=== PATIENT | male | born 1990 | race Caucasian/White ===

== ENCOUNTER 2019-04-23 16:07 | Emergency (ER) | payer SELFPAY ==
[~2019-04-23] VITALS: Ht 193 cm; Wt 65.8 kg
--- NOTE | 2019-04-23 16:27 | ED Dyspnea ---
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 Has become progressive worse since injuring it. Timing/Duration: 4-6 Hours Severity: Moderate Activities at Onset: Activity (see bong) Prior Episodes/Possible Cause: No Prior Episodes Modifying Factors: Worse With Activity; Improves With Rest Associated Symptoms: Denies Symptoms (x/ as noted.), Pain (left shoulder) Allergies and Home Medications Allergies Coded Allergies: No Known Drug Allergies (Unverified , 04/24/19) Home Medications Meloxicam 7.5 Mg Tablet, 7.5 MG PO Q12H PRN for SHOULDER PAIN Prescribed by: KOBY MONTENEGRO on 04/23/19 1530 Patient Home Medication List Home Medication List Reviewed: Yes Review of Systems Review of Systems Constitutional: see HPI Musculoskeletal: see HPI, other (left shoulder pain) All Other Systems Reviewed Negative Unless Noted: Yes (Negative excepted noted.) Past Eddqtvt-Hfkxba-Fdsabu Hx Patient Social History Recent Foreign Travel: No Contact w/Someone Who Travel: No Physical Exam Vital Signs Vital Signs - First Documented 04/23/19 16:13 Temp 98.3 Pulse 79 Resp 16 B/P (MAP) 104/66 (79) Pulse Ox 99 O2 Delivery Room Air Capillary Refill : Height, Weight, BMI Height: '" Weight: lbs. oz. kg; BMI Method: General Appearance: WD/WN, Mild Distress Respiratory: No Respiratory Distress Cardiovascular: Regular Rate, Rhythm Rectal: Deferred Extremity: Other (left shoulder c/ decreased active ROM secondary to apparent pain; (+) palpable tenderness anteriorly; no obvious visual, or palpable deformity. ) Neurologic/Psychiatric: Alert, Oriented x3, No Motor/Sensory Deficits, Normal Mood/Affect Skin: Warm/Dry Progress/Results/Core Measures Results/Orders My Orders Orders - KOBY MONTENEGRO DO Ekg Tracing (04/23/19 16:27) Shoulder 3 View Left (04/23/19 16:45) Ed Ortho Supplies Order (04/23/19 17:11) Ketorolac Injection (Toradol Injection) (04/23/19 17:15) Ketorolac Injection (Toradol Injection) (04/23/19 17:29) Vital Signs/I&O 04/23/19 04/23/19 16:13 18:00 Temp 98.3 98.3 Pulse 79 79 Resp 16 11 B/P (MAP) 104/66 (79) 104/66 (79) Pulse Ox 99 99 O2 Delivery Room Air Room Air Diagnostic Imaging Diagonstic Imaging: Xray Plain Films/CT/US/NM/MRI: other (shoulder-NAD) Departure Impression Primary Impression: Left shoulder injury and pain Disposition: HOME, SELF-CARE Condition: Stable Departure-Patient Inst. Decision time for Depature: 17:14 Referrals: CORI NIEVES MD Patient Instructions: Bursitis (DC) Add. Discharge Instructions: All discharge instructions reviewed with patient and/or family. Voiced understanding. USE SLING FOR NEXT 3-5 DAYS. WILL NEED ORTHOPEDIC FOLLOW UP IF NOT DOING BETTER IN NEXT 4-5 DAYS. MAY TAKE A 1000 mg OF TYLENOL WITH THE PRESCRIPTION MEDICINE PRESCRIBED. DO NOT EXCEED 4000 mg OF TYLENOL IN A 24 HOURS. Scripts Meloxicam (Mobic) 7.5 Mg Tablet 7.5 MG PO Q12H PRN for SHOULDER PAIN, #30 TAB 0 Refills Prov: KOBY MONTENEGRO DO 04/23/19 Work/School Note: Work Release Form Date Seen in the Emergency Department: April 23, 2019 Return to Work: April 24, 2019 Other Restrictions Listed Below: WILL NOT BE ABLE TO USE LEFT ARM FOR THE NEXT 5 DAYS. KOBY MONTENEGRO DO April 23, 2019 16:26
--- NOTE | 2019-04-23 16:58 | Diagnostic Imaging Report ---
INDICATION: Left shoulder pain and paresthesia after injury. EXAMINATION: AP, oblique and transscapular views of the left shoulder are obtained. FINDINGS: There is soft tissue prominence overlying the distal clavicle head; however, alignment appears to be unremarkable. No acute fracture or dislocation is identified. No abnormal lytic or sclerotic focus is seen, and there is no radiopaque foreign body. IMPRESSION: No acute abnormality. Dictated by: Dictated on workstation # [id number]
[2019-04-23] MEDS ORDERED: KETOROLAC 30 MG/ML VIAL IM ONE (17:15)
[2019-04-23] MEDS ORDERED: MELO-170 PO (17:16)
[2019-04-23] MEDS ORDERED: KETOROLAC 30 MG/ML VIAL ONE (17:29)
[2019-04-23 18:00] VITALS: BP 104/66
--- OUTSIDE RECORDS SUMMARY | 2019-04-23 23:28 | XMS REPORT ---
Author Author Migration, Doctor Organization [facility] Address Unknown Phone Unavailable Care Team Providers Care Energy Conservation Representative Name Role Phone Migration, Doctor Unavailable Unavailable PROBLEMS Type Condition ICD9-CM Code ULB38-SH Code Onset Dates Condition Status SNOMED Code Problem Lumbago 724.2 Active 692068541 Problem Physical exam Z00.00 Active 945152176 ALLERGIES No Information ENCOUNTERS Encounter Location Date Diagnosis [facility] [id number] [place] [id number] 15 Mar, 2016 Dental examination Z01.20 [facility] [id number] [place] [phone] 10 Jan, 2016 [facility] [id number] [place] [phone] 10 Jan, 2016 Physical exam Z00.00 [facility] [id number] [place] [phone] 14 Mar, 2015 [facility] [id number] [place] [phone] Mar, [facility] [id number] [phone] Jan, [facility] [id number] [place] [phone] Jan, [facility] [id number] [place] [phone] Jan, IMMUNIZATIONS No Known Immunizations SOCIAL HISTORY Never Assessed REASON FOR VISIT [facility] [place] CARE VITAL SIGNS MEDICATIONS No Known Medications RESULTS No Results PROCEDURES No Known procedures INSTRUCTIONS MEDICATIONS ADMINISTERED No Known Medications MEDICAL (GENERAL) HISTORY Type Description Date Medical History scoliosis Medical History chron's disease Hospitalization History chron's disease
--- OUTSIDE RECORDS SUMMARY | 2019-04-23 23:28 | XMS REPORT ---
Author Author OLE ORANTES Organization [employer] Address Unknown Phone Unavailable Care Team Providers Care Construction Contractor Name Role Phone OLE ORANTES CP Unavailable Allergies, Adverse Reactions, Alerts Substance Reaction Event Type N.K.D.A. Info Not Available Non Drug Allergy Problems Problem Type Condition Code Onset Dates Condition Status Problem Lumbago 724.2 Active Assessment Physical exam Z00.00 Active Problem Physical exam Z00.00 Active Medications No Known Medications Procedures Procedure Coding System Code Date Office Visit, Est Pt., Level 3 CPT-4 36312 Jan 11, 2016 Vital Signs Date/Time: Jan 11, 2016 Temperature 98.4 F Weight 156.4 lbs Height 76 in BMI 19.04 Index Blood Pressure Diastolic 76 mmHg Blood Pressure Systolic 112 mmHg Cardiac Monitoring Heart Rate 72 bpm Results No Known Results Summary Purpose [employer] Submission
--- OUTSIDE RECORDS SUMMARY | 2019-04-23 23:28 | XMS REPORT ---
Author SAMIR Hameed [facility] [employer] Address Unknown Phone Unavailable Care Team Providers Care Green Meat Grader Name Role Phone SAMIR MEZA CP Unavailable Allergies No Known Allergies Problems Problem Type Condition Code Onset Dates Condition Status Problem Lumbago 724.2 Active Problem Physical exam Z00.00 Active Medications No Known Medications Results No Known Results Summary Purpose [employer] Submission
--- OUTSIDE RECORDS SUMMARY | 2019-04-23 23:28 | XMS REPORT | Continuity of Care Document ---
Author Organization Unknown Address Unknown Allergies There is no data. Medications There is no data. Problems There is no data. Procedures There is no data. Results There is no data. Encounters ACCT No. Visit Date/Time Discharge Status Pt. Type Provider Facility Loc./Unit Complaint [id number] 04/20/2019 12:40:00 04/20/2019 23:59:59 CLS Outpatient HU CORTEZ LAC [facility] IN [facility]
--- OUTSIDE RECORDS SUMMARY | 2019-04-23 23:28 | XMS REPORT ---
Author Author Migration, Doctor Organization [facility] Address Unknown Phone Unavailable Care Team Providers Care Financial Advocate Name Role Phone Migration, Doctor Unavailable Unavailable PROBLEMS Type Condition ICD9-CM Code [id number] Code Onset Dates Condition Status SNOMED Code Problem Lumbago 724.2 Active 131769220 Problem Physical exam Z00.00 Active 556079142 ALLERGIES No Information ENCOUNTERS Encounter Location Date Diagnosis [facility] [id number] [place] [phone] 15 Mar, 2016 Dental examination Z01.20 [facility] [id number] [place] [phone] 10 Jan, 2016 [facility] [id number] [place] [phone] 10 Jan, 2016 Physical exam Z00.00 [facility] [id number] [place] [phone] 14 Mar, 2015 [facility] [id number] [place] [phone] 13 Mar, 2015 [facility] [id number] [place] [phone] Jan, [facility] [id number] [place] [phone] Jan, [facility] [id number] [place] [phone] Jan, IMMUNIZATIONS No Known Immunizations SOCIAL HISTORY Never Assessed REASON FOR VISIT [place] PLAN OF CARE VITAL SIGNS MEDICATIONS Medication Instructions Dosage Frequency Start Date End Date Duration Status Vicodin 5-500 mg take 2 tablets by oral route every 6 hours as needed for pain Jan, Active Flexeril 10 mg take 1 tablet (10 mg) by oral route 3 times per day Jan, Active RESULTS No Results PROCEDURES No Known procedures INSTRUCTIONS MEDICATIONS ADMINISTERED No Known Medications MEDICAL (GENERAL) HISTORY Type Description Date Medical History scoliosis Medical History chron's disease Hospitalization History chron's disease
== END 2019-04-23 17:36 | disposition home or self-care (01) ==
LOC: ER FS 16:09 → MERGE 16:09 → ER FS 17:36
DX: S49.92XA Unspecified injury of left shoulder and upper arm, initial encounter (principal); W28.XXXA Contact with powered lawn mower, initial encounter
CPT/HCPCS: 73030

== ENCOUNTER 2019-07-14 07:50 | Emergency (ER) | payer SELFPAY ==
[~2019-07-14] VITALS: Ht 193 cm; Wt 65.8 kg
[~2019-07-14 07:50] MED LIST: MELO-170 PO
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
[2019-07-14 08:49] VITALS: BP 154/82
--- NOTE | 2019-07-14 08:53 | Diagnostic Imaging Report ---
Indication: Injury to left foot AP, oblique, and lateral views of the left foot are obtained. No fracture or acute bony abnormality is seen. Impression: Negative left foot. Dictated by: Dictated on workstation # [id number]
== END 2019-07-14 08:50 | disposition home or self-care (01) ==
LOC: EDUNIT# 07:50 → ER FS 07:53
DX: S90.32XA Contusion of left foot, initial encounter (principal); S90.122A Contusion of left lesser toe(s) without damage to nail, initial encounter; F12.10 Cannabis abuse, uncomplicated; Z87.19 Personal history of other diseases of the digestive system; W20.8XXA Other cause of strike by thrown, projected or falling object, initial encounter
CPT/HCPCS: 73630

== ENCOUNTER 2022-05-09 22:52 | Emergency (ER) | payer SELFPAY ==
[~2022-05-09] VITALS: Ht 193 cm; Wt 69.8 kg
--- NOTE | 2022-05-09 23:20 | ED Integumentary General ---
General Stated Complaint: BODY ITCHING History of Present Illness Date Seen by Provider: May 09, 2022 Time Seen by Provider: 23:00 Initial Comments 31-year-old male is here with his son and his girlfriend with complaints of scabies which has been going on for the past few weeks. Patient has itching and rash in his groin, flexor surfaces of his elbows and knees and legs and back and neck. Denies fever, diarrhea, abdominal pain, shortness of breath, respiratory symptoms. Allergies and Home Medications Allergies Coded Allergies: No Known Drug Allergies (Unverified , 04/24/19) Patient Home Medication List Home Medication List Reviewed: Yes Meloxicam (Mobic) 7.5 Mg Tablet, 7.5 MG PO Q12H PRN for SHOULDER PAIN Prescribed by: KOBY MONTENEGRO on 04/23/19 171 Permethrin (Permethrin) 5 % Cream..g., 60 GM TP ONCE Prescribed by: ANA LUISA PHILLIPS MD on 05/09/22 0313 Review of Systems Review of Systems Constitutional: no symptoms reported EENTM: no symptoms reported Respiratory: no symptoms reported Cardiovascular: no symptoms reported Gastrointestinal: no symptoms reported Genitourinary: no symptoms reported Musculoskeletal: no symptoms reported Skin: pruritus, rash Psychiatric/Neurological: No Symptoms Reported Endocrine: No Symptoms Reported Hematologic/Lymphatic: No Symptoms Reported Past Sfpmtsq-Hddfhs-Dquorv Hx Immunizations Up To Date Tetanus Booster (TDap): Unknown Seasonal Allergies Seasonal Allergies: No Past Medical History Surgeries: No Respiratory: No Cardiac: No Neurological: No Genitourinary: No Gastrointestinal: Yes Crohns Disease, Chronic Constipation Musculoskeletal: Yes Scoliosis Endocrine: No HEENT: No Cancer: No Psychosocial: No Integumentary: Yes Psoriasis Physical Exam Vital Signs Vital Signs - First Documented 05/09/22 23:15 Pulse 81 Resp 17 B/P (MAP) 125/76 (92) Pulse Ox 98 O2 Delivery Room Air Capillary Refill : General Appearance: no apparent distress HEENT: PERRL/EOMI Neck: full range of motion Neurologic/Psychiatric: alert, normal mood/affect, oriented x 3 Skin: rash Skin Problem Location: generalized, neck, upper extremities, torso, lower extremities Skin Problem Character: erythema, rash, other (Scaly rash on flexor surfaces of arms and legs neck chest groin) Lymphatic: no adenopathy Progress/Results/Core Measures Results/Orders Vital Signs/I&O 05/09/22 23:15 Pulse 81 Resp 17 B/P (MAP) 125/76 (92) Pulse Ox 98 O2 Delivery Room Air Progress Progress Note : Progress Note SCABIES: - 5% Permethrin cream, apply to body and leave on for 8 to 14 hours and then wash off, repeat in 7 to 10 days - Follow up with PCP in 7 days - Over the counter Sarna lotion for itching and hydrocortisone cream - Wash clothing/ bedding/towels in hot water and dry Departure Impression Primary Impression: Scabies Disposition: HOME, SELF-CARE Condition: Stable Departure-Patient Inst. Referrals: NO,LOCAL PHYSICIAN (PCP/Family) Primary Care Physician Patient Instructions: Scabies (DC), Scabies Add. Discharge Instructions: SCABIES: - 5% Permethrin cream, apply to body and leave on for 8 to 14 hours and then wash off, repeat in 7 to 10 days - Follow up with PCP in 7 days - Over the counter Sarna lotion for itching and hydrocortisone cream - Wash clothing/ bedding/towels in hot water and dry Scripts Permethrin (Permethrin) 5 % Cream..g. 60 GM TP ONCE for 2 Days, #2 EA SCABIES: - 5% Permethrin cream, apply to body and leave on for 8 to 14 hours and then wash off, repeat in 7 to 10 days Prov: ANA LUISA PHILLIPS MD 05/09/22 ANA LUISA PHILLIPS MD May 09, 2022 23:19
[2022-05-09] MEDS ORDERED: PERM60CR4 TP (23:37)
[2022-05-09 23:55] VITALS: BP 125/76
== END 2022-05-09 23:55 | disposition home or self-care (01) ==
LOC: EDUNIT# 22:52 → ER FS 22:53
DX: B86 Scabies (principal)
CPT/HCPCS: 99281

== ENCOUNTER 2022-07-25 23:47 | Emergency (ER) | payer SELFPAY ==
[~2022-07-25] VITALS: Ht 193 cm; Wt 74.9 kg
[~2022-07-25 23:47] MED LIST changes: +PERM60CR4 TP
[2022-07-26] MEDS ORDERED: ACETAMINOPHEN 500 MG TAB (TYLENOL) PO ONE
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
[2022-07-26 00:25] VITALS: BP 117/68
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
== END 2022-07-26 00:25 | disposition home or self-care (01) ==
LOC: EDUNIT# 23:47 → ER FS 23:58
DX: M25.551 Pain in right hip (principal); Z72.0 Tobacco use; Z28.310 Unvaccinated for COVID-19; V28.4XXA Motorcycle driver injured in noncollision transport accident in traffic accident, initial encounter; Y93.I9 Activity, other involving external motion; Y92.410 Unspecified street and highway as the place of occurrence of the external cause
CPT/HCPCS: 73502

== ENCOUNTER 2023-04-27 23:27 | Emergency (ER) | payer SELFPAY ==
[~2023-04-27] VITALS: Ht 193 cm; Wt 74.5 kg
[2023-04-27 23:30] VITALS: BP 130/83
[2023-04-27] MEDS ORDERED: HYDROcodone/APAP 5 MG/325 MG (LORTAB) TAB PO STA (23:45)
[2023-04-27] MEDS ORDERED: IBUPROFEN 800 MG (MOTRIN) TAB PO STA (23:45)
[2023-04-27] MEDS ORDERED: ONDANSETRON 4 MG (ZOFRAN) ORAL DISSOLVE TAB PO STA (23:45)
--- NOTE | 2023-04-27 23:52 | ED Fall/Injury ---
General Chief Complaint: Trauma-Non Activation Stated Complaint: FACIAL INJ| DRINKING Source: patient History of Present Illness Date Seen by Provider: April 27, 2023 Time Seen by Provider: 23:31 Initial Comments 32-year-old male presenting with his dad to the emergency department. He states he had been drinking alcohol today because he was upset and depressed. He had fallen on a gravel road and has abrasions to his upper lip and face. He is not sure if he got knocked out. He was complaining of pain 10 out of 10 to his face. He had nausea with one episode of vomiting. 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 He is worried about going to sleep because of the head injury and drinking alcohol. He has not taken anything for pain prior to arrival in the ED. He states his last tetanus shot was 2 to 3 years ago. Occurred: this evening Severity: severe Injuries/Pain Location: face Context: unknown Loss of Consciousness: unsure Modifying Factors: Worse With Movement Associated Symptoms (Fall): No Abdominal Pain, No Chest Pain, No Confusion, No Dizziness; Headache; No Lightheadedness, No Muscle Spasms; Nausea/Vomiting; No Neck Pain, No Ringing in Ears, No Seizures, No Shortness of Air; Slurred Speech, Trouble Walking (Unsteady gait with his alcohol intoxication); No Vision Changes Allergies and Home Medications Allergies Coded Allergies: No Known Drug Allergies (Unverified , 04/24/19) Patient Home Medication List Home Medication List Reviewed: Yes Unable to Obtain Active Prescriptions or Reported Meds Review of Systems Review of Systems Constitutional: No chills, No fever Eyes: Denies Blurred Vision, Denies Photophobia, Denies Vision Changes Ears, Nose, Mouth, Throat: denies ear pain, denies ear discharge; nose pain; denies nose discharge, denies epistaxis; mouth pain (pain and swelling to upper lip. avulsion of part of his mustache and tissue from upper lip) Respiratory: No cough, No short of breath Cardiovascular: No chest pain Gastrointestinal: see HPI Genitourinary: no symptoms reported Musculoskeletal: no symptoms reported Skin: see HPI, other (multiple abrasions to face and left hand. avulsion of tissue from mustache and upper lip) Psychiatric/Neurological: Headache Past Aytklae-Lkllii-Jisxeu Hx Patient Social History Tobacco Use?: Yes Tobacco type used: Cigarettes Substance use?: Yes Substance type: Methamphetamine, Marijuana Alcohol Use?: Yes Alcohol type: Beer, Hard Liquor Immunizations Up To Date Tetanus Booster (TDap): Less than 5yrs First/Initial COVID19 Vaccinat: denies Seasonal Allergies Seasonal Allergies: No Past Medical History Surgeries: No Respiratory: No COPD Cardiac: No Neurological: No Genitourinary: No Gastrointestinal: Yes Crohns Disease, Chronic Constipation Musculoskeletal: Yes Scoliosis Endocrine: No HEENT: No Cancer: No Psychosocial: No Integumentary: Yes Psoriasis Family Medical History No Pertinent Family Hx Physical Exam Vital Signs Vital Signs - First Documented Capillary Refill : Height, Weight, BMI Height: 6'4.00" Weight: 145lbs. oz. [id number]; 20.00 BMI Method:Stated General Appearance: thin HEENT: PERRL/EOMI, TMs normal, pharynx normal; No photophobia; other (Negative dyson sign, negative raccoon sign, no CSF otorrhea, no CSF rhinorrhea, no hemotympanums. As avulsion and abrasion to the tissue on his upper lip and mustache. He also has abrasions on his nose. I did not appreciate any loose teeth. 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 Has avulsion of part of his mustache and tissue from the upper lip) Bushnell Coma Score Best Eye Response: (4) Open Spontaneously Best Verbal Response: (5) Oriented Best Motor Response: (6) Obeys Commands Chepe Total: 15 Progress/Results/Core Measures Results/Orders My Orders Orders - JOHNNY AGUDELO MD Ct Head/Face/Cervical Wo (04/27/23 23:44) Ice: Apply To Affected Area (04/27/23 23:45) Hydrocodone/Apap 5/325 Tablet (Lortab 5 (04/27/23 23:45) Ibuprofen Tablet (Motrin Tablet) (04/27/23 23:45) Ondansetron Oral Dissolve Tab (Zofran (04/27/23 23:45) Vital Signs/I&O 04/27/23 04/27/23 23:30 23:30 Temp 36.6 36.6 Pulse 82 82 Resp 18 18 B/P (MAP) 130/83 (99) 130/83 (99) Pulse Ox 99 99 O2 Delivery Room Air Room Air Progress Progress Note #1: Progress Note Potential life-threatening diagnosis of subarachnoid hemorrhage, subdural hemorrhage, facial fractures, alcohol intoxication, polysubstance abuse, concussion, closed head injury, skull fracture. After cleaning the upper lip he had avulsion of tissue and mustache but there is no definite area that could be stitched to approximate wound edges. Wound was cleaned with chlorhexidine scrub soap and sterile water. Patient reports his tetanus shot was 2 to 3 years ago so we will defer repeating that. Obtain CT scan of the head, face, cervical spine without IV contrast to look for signs of acute facial fracture, skull fracture, intracranial hemorrhage. Patient reported that his pain was a 10 out of 10 and was requesting something for pain but refused the shot. He does have alcohol on board but will give a single hydrocodone 5/325 mg p.o. pill and ibuprofen 800 mg p.o. x1. Ice pack for his upper lip and face. Keep head elevated 30 to 45 degrees Progress Note #2: Time: 00:33 Progress Note I did not appreciate any acute fracture or intracranial hemorrhage on my review and interpretation of the CT scan of the head, face, cervical spine without IV contrast. Patient left the department at 0033 refusing to sign any paperwork and refusing to wait for official reading of the CT scan Diagnostic Imaging Diagonstic Imaging: CT Plain Films/CT/US/NM/MRI: facial bones, c-spine, head Comments CT scan of the head, face, cervical spine without IV contrast Impression: 1. No acute hemorrhage, hydrocephalus, or mass effect. 2. No acute head or face fracture. No acute fracture or subluxation of the cervical spine. Read by radiologist Dr. Angélica Ashby MD at 0010 and faxed at 0112 Reviewed: [facility] (I reviewed the [facility] radiologist reading at 0114 and they agreed that he had no acute fracture or intracranial hemorrhage.), Reviewed by Me Departure Impression Primary Impression: Avulsion of lip Additional Impressions: Abrasion, multiple sites Acute alcohol intoxication Qualified Codes: F10.920 - Alcohol use, unspecified with intoxication, uncomplicated Fall from standing Qualified Codes: W19.XXXA - Unspecified fall, initial encounter Facial contusion Qualified Codes: S00.83XA - Contusion of other part of head, initial encounter Disposition: 07 AGAINST MEDICAL ADVICE Condition: Against Medical Advice Departure-Patient Inst. Decision time for Depature: 00:33 Referrals: NO,LOCAL PHYSICIAN (PCP) Primary Care Physician [facility] Patient Instructions: Alcohol Intoxication ED, Leaving Against Medical Advice, Minor Head Injury, Adult ED, Mouth and dental injuries in adults, Preventing Falls ED, Wound Care ED Add. Discharge Instructions: Keep your abrasions and the avulsion on your upper lip clean with soap and water. May apply antibiotic ointment 2-3 times a day as needed. Use ice 15 to 20 minutes every few hours as needed to help with pain and swelling. Try to keep your head elevated at least 30 to 45 degrees at all times. This will help limit the swelling and bruising over the next 2 to 3 days. Check back with primary care clinic for continued concerns. Avoid drinking alcohol to excess. May take ibuprofen 800 mg every 8 hours as needed for pain and inflammation. All discharge instructions reviewed with patient and/or family. Voiced unde rstanding. Scripts Unable to Obtain Active Prescriptions or Reported Meds JOHNNY AGUDELO MD April 27, 2023 23:52
--- NOTE | 2023-04-28 07:07 | Diagnostic Imaging Report ---
PROCEDURE: CT head, face, cervical spine without contrast. TECHNIQUE: Multiple contiguous axial images were obtained through the head, neck, and facial bones without the use of intravenous contrast. Sagittal and coronal reformations through the cervical spine and facial bones were also performed. All CT scans use one or more of the following dose optimizing techniques: automated exposure control, MA and/or KvP adjustment based on a patient size and exam type, or iterative reconstruction. INDICATION: Head, face and neck trauma COMPARISON: None available. FINDINGS: Head: No hyperdense hemorrhage or space-occupying mass. No hydrocephalus or midline shift. No evidence of territorial infarct. Basilar cisterns are patent. No focal scalp swelling. No skull fracture. The mastoid air cells are clear. Face: No fracture of the nasal bones, osseous nasal septum or anterior nasal spine. The orbits, zygomatic arches, maxillary sinus barrios, alveolar ridge of the maxilla and pterygoid plates are all intact. Normal alignment of the temporal mandibular joints. No acute mandibular fracture. Severe dental caries and periodontal disease involving the bilateral maxillary and mandibular molars. Paranasal sinuses are clear. No globe rupture or retrobulbar hematoma. Cervical spine: No acute fracture or traumatic malalignment. No high-grade spinal canal narrowing. Airway is patent. No cervical lymphadenopathy. Visualized thyroid is normal. IMPRESSION: 1. No acute intracranial process or skull fracture. 2. No acute fracture in the mid face or mandible. Severe dental caries. 3. No acute fracture or traumatic malalignment of the cervical spine. 4. Findings are in agreement with the preliminary report. Dictated by: Dictated on workstation # [id number]
== END 2023-04-28 00:33 | disposition left against medical advice (07) ==
LOC: EDUNIT# 23:27 → ER FS 23:29
DX: S00.83XA Contusion of other part of head, initial encounter (principal); S60.512A Abrasion of left hand, initial encounter; F10.129 Alcohol abuse with intoxication, unspecified; F17.210 Nicotine dependence, cigarettes, uncomplicated; Z28.310 Unvaccinated for COVID-19; W18.30XA Fall on same level, unspecified, initial encounter; Y92.480 Sidewalk as the place of occurrence of the external cause; Y90.9 Presence of alcohol in blood, level not specified
CPT/HCPCS: 70450; 70486; 72125